=== PATIENT | male | born 1995 | race Caucasian/White ===

== ENCOUNTER → 2017-04-12 | Outpatient (CLI) | payer OTHER ==
[2017-04-12 13:46] LABS: AMORPHOUS SEDIMENT,URINE 1+ /HPF; APPEARANCE,URINE TURBID; BILIRUBIN,URINE NEGATIVE (NEGATIVE); GLUCOSE, URINE NEGATIVE (NEGATIVE); KETONES,URINE NEGATIVE (NEGATIVE); LEUKOCYTE ESTERASE,URINE NEGATIVE (NEGATIVE); NITRITE,URINE NEGATIVE (NEGATIVE); PROTEIN,URINE NEGATIVE (NEGATIVE); URINE SPECIFIC GRAVITY 1.029; UROBILINOGEN,URINE NEGATIVE mg/dL (<2.0)
== END ==
LOC: OD 12:47
PROVIDERS: ATTEND Urology
DX: R31.29 Other microscopic hematuria (principal)
CPT/HCPCS: 81001

== ENCOUNTER 2017-09-18 21:41 | Emergency (ER) | payer OTHER ==
[2017-09-18 23:39] LABS: AMORPHOUS SEDIMENT,URINE TRACE /HPF; APPEARANCE,URINE SLIGHTLY-CLOUDY; BILIRUBIN,URINE NEGATIVE (NEGATIVE); GLUCOSE, URINE NEGATIVE (NEGATIVE); KETONES,URINE NEGATIVE (NEGATIVE); LEUKOCYTE ESTERASE,URINE NEGATIVE (NEGATIVE); NITRITE,URINE NEGATIVE (NEGATIVE); PROTEIN,URINE NEGATIVE (NEGATIVE); URINE SPECIFIC GRAVITY 1.023; UROBILINOGEN,URINE NEGATIVE mg/dL (<2.0)
--- NOTE | 2017-09-19 00:14 | RADIOLOGY REPORT (SQ) ---
EXAM DESCRIPTION: U/S SCROTUM W/DOPPLER COMPLETED DATE/TIME: 09/18/2017 11:37 pm REASON FOR STUDY: testicular pain COMPARISON: None. TECHNIQUE: Static and realtime yung scale imaging of the scrotum and testes. Selected color Doppler and spectral images recorded to document blood flow. LIMITATIONS: None. FINDINGS: RIGHT: TESTICLE: Normal size. Normal echotexture. Normal blood flow. No mass. EPIDIDYMIS: 0.7 cm epididymal cyst -spermatocele. HYDROCELE OR VARICOCELE: No. HERNIA OR EXTRA-TESTICULAR MASS: No. OTHER: No other significant finding. LEFT: TESTICLE: Normal size. Normal echotexture. Normal blood flow. No mass. Prominent septation/vessel. EPIDIDYMIS: Normal. HYDROCELE OR VARICOCELE: Moderate varicocele with 0.3 cm diameter vessels. HERNIA OR EXTRA-TESTICULAR MASS: No. OTHER: No other significant finding. IMPRESSION: No acute findings. Normal testes. Moderate left varicocele. TECHNICAL DOCUMENTATION: JOB ID: [id number] [employer]- All Rights Reserved
--- NOTE | 2017-09-19 00:32 | ER Document Report ---
ED General - General Chief Complaint: Testicular Pain Stated Complaint: LEFT TESTICLE PAIN Time Seen by Provider: 09/18/17 22:53 Notes: Patient is a 22-year-old male with past medical history of left-sided testicular varicoceles who presents with left-sided testicular pain. States that it was a shooting, sharp, stabbing pain to the left testicle that is now mostly resolved. He states this started abruptly and resolved without any acute intervention. States he has had pain in this testicle for similar to this but it not to this degree of intensity which is what prompted him to come to the emergency department. He has not seen his primary care doctor regarding today's concerns. He denies any associated dysuria, hematuria, fever or constitutional symptoms. No trauma to the testicle. TRAVEL OUTSIDE OF THE [place] IN LAST 30 DAYS: No Past Medical History - General Information source: Patient - Social History Smoking Status: Never Smoker Frequency of alcohol use: None Drug Abuse: None Lives with: Spouse/Significant other Family History: Reviewed & Not Pertinent Patient has suicidal ideation: No Patient has homicidal ideation: No Renal/ Medical History: Denies: Hx Peritoneal Dialysis Review of Systems - Review of Systems Notes: Constitutional: Negative for fever. HENT: Negative for sore throat. Eyes: Negative for visual changes. Cardiovascular: Negative for chest pain. Respiratory: Negative for shortness of breath. Gastrointestinal: Negative for abdominal pain, vomiting or diarrhea. Genitourinary: Negative for dysuria. Positive for left testicle pain Musculoskeletal: Negative for back pain. Skin: Negative for rash. Neurological: Negative for headaches, weakness or numbness. 10 point ROS negative except as marked above and in HPI. Physical Exam - Vital signs Vitals: Temp Pulse Resp BP Pulse Ox 98.7 F 62 16 144/50 H 99 09/18/17 21:58 09/18/17 21:58 09/18/17 21:58 09/18/17 21:58 09/18/17 21:58 Interpretation: Normal Notes: PHYSICAL EXAMINATION: GENERAL: Well-appearing, well-nourished and in no acute distress. HEAD: Atraumatic, normocephalic. EYES: Pupils equal round and reactive to light, extraocular movements intact, sclera anicteric, conjunctiva are normal. ENT: nares patent, oropharynx clear without exudates. Moist mucous membranes. NECK: Normal range of motion, supple without lymphadenopathy LUNGS: Breath sounds clear to auscultation bilaterally and equal. No wheezes rales or rhonchi. HEART: Regular rate and rhythm without murmurs ABDOMEN: Soft, nontender, normoactive bowel sounds. No guarding, no rebound. No masses appreciated. : Varicoceles on the left testicle. Mild pain on palpation of the left spermatic cord but otherwise no focal testicular tenderness. No hernia present in either inguinal canal EXTREMITIES: Normal range of motion, no pitting or edema. No cyanosis. NEUROLOGICAL: No focal neurological deficits. Moves all extremities spontaneously and on command. PSYCH: Normal mood, normal affect. SKIN: Warm, Dry, normal turgor, no rashes or lesions noted. Course - Re-evaluation Re-evalutation: 09/19/17 00:28 Patient presents with left testicular pain, found on ultrasound to have varicoceles of which he already knows. The patient on examination is no evidence of an acute hernia, positive cremasteric bilaterally, no epididymal tenderness. Urinalysis unremarkable. A testicular ultrasound shows a varicocele, no additional findings. At this time will discharge with return precautions and follow-up recommendations. Verbal discharge instructions given a the bedside and opportunity for questions given. Medication warnings reviewed. Patient is in agreement with this plan and has verbalized understanding of return precautions and the need for primary care follow-up in the next 24-72 hours. - Vital Signs Vital signs: Temp Pulse Resp BP Pulse Ox 97.9 F 114 H 18 123/63 98 09/19/17 00:37 09/19/17 00:37 09/19/17 00:37 09/19/17 00:37 09/19/17 00:37 - Diagnostic Test Radiology reviewed: Reports reviewed Discharge - Discharge Clinical Impression: Left testicular pain, Varicocele Condition: Good Disposition: HOME, SELF-CARE Additional Instructions: Please follow-up with your urologist at your earliest ability. Your pain is likely due your varicocele. For your pain: Take ibuprofen 600 mg and acetaminophen 1000 mg every 6 hours together as needed for pain. Return if you have worsening pain, persistent vomiting, fever, or any other symptoms that are worrisome to you. Referrals: DIANA HUERTA II, MD [PARDEEP FISHER] - Follow up as needed
[2017-09-19 00:38] VITALS: BP 123/63
[2017-09-19 01:02] LABS: CHLAM PCR NOT DETECTED (NOT DETECT)
== END 2017-09-19 00:37 | disposition home or self-care (01) ==
LOC: ER 21:41
DX: N50.812 Left testicular pain (principal); I86.1 Scrotal varices
CPT/HCPCS: 76870; 81001; 87491; 87591; 93976; 99284